=== PATIENT | female | born 1945 | race African-American/Black ===

== ENCOUNTER → 2021-03-07 | Day surgery (SDC) | payer MEDICARE ==
[~2021-03-07] VITALS: Ht 152.4 cm; Wt 113.4 kg
[~2021-03-07] MED LIST: ACETAMINOPHEN 325MG TABLET PO PRN; ALBU4TAB6 MT; ALBU90AE INH; AMLO10TA80 MT; CLOP-31 MT; FENTANYL CITRATE/PF 50MCG/ML 2ML VIAL ONE; FURO-151 MT; GABA-532 MT; GLIM4TAB36 MT; HEPARIN SODIUM 1,000 UNIT/1ML VIAL IV ONE; IODIXANOL 320MG/ML 100 ML BOTTLE IV ONE; LIDOCAINE HCL 1% 20ML VIAL (Pyxis) INJ ONE; METF-874 MT; MIDAZOLAM HCL 2 MG/2 ML VIAL ONE; MORP30TA66 MT; MORPHINE SULFATE 2 MG/ML CPJ (NOT FOR IM USE) IV PRN; MORPHINE SULFATE 2 MG/ML CPJ (NOT FOR IM USE) IV SCH; NALOXONE HCL 0.4MG/ML VIAL IV PRN; NICARDIPINE 100MCG/ML 10ML VIAL (CATH LAB) IV ONE; NITROGLYCERIN 50MCG/ML 10ML VIAL (CATH LAB) IV ONE; ONDANSETRON HCL 4MG/2ML INJ IV ONE; ONDANSETRON HCL 4MG/2ML INJ IV PRN; POTA8CAP20 MT; SERT-112 MT; TIZA-191 MT
== END | disposition home or self-care (01) ==
LOC: CCL 08:54
PROVIDERS: ATTEND Specialist
DX: R94.39 Abnormal result of other cardiovascular function study (principal); R94.31 Abnormal electrocardiogram [ECG] [EKG]; R00.1 Bradycardia, unspecified; R07.9 Chest pain, unspecified; I10 Essential (primary) hypertension; E11.9 Type 2 diabetes mellitus without complications; E04.1 Nontoxic single thyroid nodule; E66.9 Obesity, unspecified; J45.909 Unspecified asthma, uncomplicated; Z79.84 Long term (current) use of oral hypoglycemic drugs; Z79.899 Other long term (current) drug therapy; Z98.890 Other specified postprocedural states
CPT/HCPCS: 93458; C1769; C1887; C1893; J1644; J2250; J3010; J3490; Q9967